=== PATIENT | female | born 1970 | race Caucasian/White ===

== ENCOUNTER 2019-04-15 02:38 | Emergency (ER) | payer MEDICAID ==
[~2019-04-15] VITALS: Ht 165.1 cm; Wt 61.2 kg
[2019-04-15 02:45] VITALS: BP_SYST 125
--- NOTE | 2019-04-15 02:50 | NUR ---
Patient to ER bed 5 to gown for evaluation. Side rails up.
--- NOTE | 2019-04-15 03:00 | NUR ---
ER at bedside examining patient.
--- NOTE | 2019-04-15 03:05 | NUR ---
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 Pt has scabs and wounds to bilateral forearms. Denies any pain or any other symptoms at this time. Pt states this is a chronic skin condition. Vitals stable, will continue to monitor.
--- NOTE | 2019-04-15 03:14 | NUR ---
Patient given written and verbal discharge instructions by Dr. Hutton and verbalizes understanding. ER MD discussed with patient the results and treatment provided. Patient in stable condition. ID arm band removed. Rx of Keflex given. Patient educated on pain management and to follow up with PMD. Pain Scale 0. Opportunity for questions provided and answered. Medication side effect fact sheet provided.
[2019-04-15 03:15] VITALS: BP_SYST 125
== END 2019-04-15 03:15 ==
LOC: SED 02:38
DX: S50.811A Abrasion of right forearm, initial encounter (principal); S50.812A Abrasion of left forearm, initial encounter; X58.XXXA Exposure to other specified factors, initial encounter; Y93.89 Activity, other specified; Y92.89 Other specified places as the place of occurrence of the external cause; Y99.8 Other external cause status
CPT/HCPCS: 99283